=== PATIENT | male | born 1985 | race Two or more races ===

== ENCOUNTER 2025-06-15 22:59 | Emergency (ER) | payer MEDICAID, OTHER ==
[~2025-06-15] VITALS: Ht 170.2 cm; Wt 89.6 kg
[2025-06-16] MEDS ORDERED: cefTRIAXone W LIDOCAINE 1 GM IM IM ONE (00:15)
[2025-06-16] MEDS ORDERED: DOXY1CAP57 PO (00:16)
[2025-06-16] MEDS ORDERED: MUPI2CRE17 EX (00:17)
[2025-06-16] MEDS ORDERED: NAP500T PO (00:18)
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
[2025-06-16] MEDS: SILVER SULFADIAZINE 1 % TOPICAL CREAM 50GM TOP ONE (01:11)
[2025-06-16 01:12] VITALS: BP 106/61; PULSE 75; RESP 19; TEMP 98.6; O2SAT 97
[2025-06-16] MEDS: cefTRIAXone SOD 1,000 MG VL IM ONE (01:12)
[2025-06-16] MEDS: LIDOCAINE 1% HCL (LOCAL ANESTH.) INJ 20ML MDV ONE (01:12)
== END 2025-06-16 01:34 | disposition home or self-care (01) ==
LOC: ER 22:59
DX: T25.211A Burn of second degree of right ankle, initial encounter (principal); L03.115 Cellulitis of right lower limb; F17.210 Nicotine dependence, cigarettes, uncomplicated; F19.20 Other psychoactive substance dependence, uncomplicated; X58.XXXA Exposure to other specified factors, initial encounter; Y93.89 Activity, other specified; Y92.89 Other specified places as the place of occurrence of the external cause; Y99.8 Other external cause status
CPT/HCPCS: 96372; 99283; J0696; J2003

== ENCOUNTER 2025-06-23 18:47 | Emergency (ER) | payer MEDICAID ==
[~2025-06-23] VITALS: Ht 172.7 cm; Wt 89.5 kg
[~2025-06-23 18:47] MED LIST: DOXY1CAP57 PO; MUPI2CRE17 EX; NAP500T PO
[2025-06-23 18:49] VITALS: TEMP 97.6
[2025-06-23] MEDS ORDERED: BACDST PO (20:52)
[2025-06-23] MEDS ORDERED: MUPI2CRE17 EX (20:52)
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
[2025-06-23 21:08] VITALS: BP 92/70; PULSE 68; RESP 18; O2SAT 97
== END 2025-06-23 21:15 | disposition home or self-care (01) ==
LOC: ER 18:47
DX: T25.211A Burn of second degree of right ankle, initial encounter (principal); F17.210 Nicotine dependence, cigarettes, uncomplicated; Z79.899 Other long term (current) drug therapy; X08.8XXA Exposure to other specified smoke, fire and flames, initial encounter; Y93.89 Activity, other specified; Y92.89 Other specified places as the place of occurrence of the external cause; Y99.8 Other external cause status